=== PATIENT | female | born 1975 | race Two or more races ===

== ENCOUNTER 2018-06-04 22:39 | Emergency (ER) | payer OTHER ==
[~2018-06-04] VITALS: Ht 167.6 cm; Wt 70.3 kg
[2018-06-04] MEDS ORDERED: NORVASC5 MG (22:51)
[2018-06-04] MEDS ORDERED: NORVASC2.5 MG (22:51)
[2018-06-04] MEDS ORDERED: ASPIR-TRIN325 MG (22:52)
[2018-06-05] MEDS ORDERED: COZAAR50 MG PO (00:48)
[2018-06-05] MEDS ORDERED: VISTARIL25 MG PO (00:48)
== END 2018-06-05 01:24 | disposition home or self-care (01) ==
LOC: ER 22:39
DX: I10 Essential (primary) hypertension (principal)